=== PATIENT | male | born 1985 | race Native Hawaiian/Other Pacific Islander ===

== ENCOUNTER 2022-05-12 13:58 | Emergency (ER) | payer OTHER ==
[~2022-05-12] VITALS: Ht 182.9 cm; Wt 81.6 kg
[2022-05-12 14:15] VITALS: TEMP 98.7
[2022-05-12 15:04] LABS: PLATELET COUNT 264 K/uL (142-355)
[2022-05-12 15:12] LABS: POTASSIUM 3.8 mmol/L (3.6-5.2)
[2022-05-12] MEDS ORDERED: ONDA4TAB3 PO (16:49)
[2022-05-12 17:04] VITALS: BP 142/75
== END 2022-05-12 17:06 | disposition home or self-care (01) ==
LOC: ED 13:58
PROVIDERS: Emergency Medicine
DX: R11.2 Nausea with vomiting, unspecified (principal); R53.1 Weakness; T67.5XXA Heat exhaustion, unspecified, initial encounter; M62.82 Rhabdomyolysis; X30.XXXA Exposure to excessive natural heat, initial encounter; Y92.89 Other specified places as the place of occurrence of the external cause
CPT/HCPCS: 80048; 82550; 84484; 85027; 93005; 96360; 96361; 96374; 99284; J2405